=== PATIENT | female | born 1950 | race Caucasian/White ===

== ENCOUNTER 2019-12-25 09:19 | Emergency (ER) | payer MEDICARE, OTHER ==
[~2019-12-25] VITALS: Ht 162.6 cm; Wt 74.6 kg
--- NOTE | 2019-12-25 11:57 | NUR ---
REPORT TO GARRETT SIFUENTES. PT IN RAD STILL.
--- NOTE | 2019-12-25 11:57 | NUR ---
RECEIVED REPORT FROM GABRIEL HANSEN. ASSUMING CARE AT THIS TIME. PT AT IMAGING.
[2019-12-25 12:19] VITALS: BP 157/68
--- NOTE | 2019-12-25 12:20 | NUR ---
ALL RESULTS ARE BACK AT THIS TIME. CHART UP FOR RECHECK.
--- NOTE | 2019-12-25 12:52 | NUR ---
EMT AT BEDSIDE FOR VI WRAP
== END 2019-12-25 13:00 | disposition home or self-care (01) ==
LOC: ED 12:50
DX: S39.012A Strain of muscle, fascia and tendon of lower back, initial encounter (principal); S16.1XXA Strain of muscle, fascia and tendon at neck level, initial encounter; S83.91XA Sprain of unspecified site of right knee, initial encounter; S43.402A Unspecified sprain of left shoulder joint, initial encounter; S63.502A Unspecified sprain of left wrist, initial encounter; S09.8XXA Other specified injuries of head, initial encounter; M25.552 Pain in left hip; R94.31 Abnormal electrocardiogram [ECG] [EKG]; V49.49XA Driver injured in collision with other motor vehicles in traffic accident, initial encounter; Y93.89 Activity, other specified; Y92.410 Unspecified street and highway as the place of occurrence of the external cause; Y99.8 Other external cause status
CPT/HCPCS: 70450; 72110; 72125; 93005; 99285